=== PATIENT | female | born 1985 | race African-American/Black ===

== ENCOUNTER 2016-10-20 12:20 | Emergency (ER) | payer OTHER, MEDICAID ==
[~2016-10-20] VITALS: Ht 91.4 cm; Wt 28.6 kg
[2016-10-20 12:49] VITALS: BP 118/85
== END 2016-10-20 13:12 | disposition home or self-care (01) ==
LOC: ER 12:20
DX: J06.9 Acute upper respiratory infection, unspecified (principal)
CPT/HCPCS: A4606; Z7610

== ENCOUNTER 2019-06-28 22:19 | Emergency (ER) | payer MEDICAID, MEDICARE ==
[~2019-06-28] VITALS: Ht 91.4 cm; Wt 31.8 kg
[2019-06-28 22:25] VITALS: BP 164/115
== END 2019-06-28 23:03 | disposition home or self-care (01) ==
LOC: ER 22:24
DX: J06.9 Acute upper respiratory infection, unspecified (principal); E78.5 Hyperlipidemia, unspecified; Z60.2 Problems related to living alone

== ENCOUNTER 2019-12-21 10:56 | Emergency (ER) | payer BC, MEDICARE ==
[~2019-12-21] VITALS: Ht 94 cm; Wt 34.0 kg
--- NOTE | 2019-12-21 12:50 | NUR ---
patient came in to the er c/o R arm pain since yesterday, denies any injury. On room air, breathing evenly and unlabored. connected to the monitor and pulse ox. kept comfortable, will continue to monitor accordingly.
--- NOTE | 2019-12-21 12:51 | NUR ---
Patient discharged to home in stable condition. Written and verbal after care instructions given. Patient verbalizes understanding of instruction.
[2019-12-21 12:52] VITALS: BP 135/81
== END 2019-12-21 12:54 | disposition home or self-care (01) ==
LOC: ER 11:06
DX: S42.491A Other displaced fracture of lower end of right humerus, initial encounter for closed fracture (principal); E78.5 Hyperlipidemia, unspecified; Z60.2 Problems related to living alone; X58.XXXA Exposure to other specified factors, initial encounter; Y93.89 Activity, other specified; Y92.89 Other specified places as the place of occurrence of the external cause; Y99.8 Other external cause status
CPT/HCPCS: 73060-TC

== ENCOUNTER 2019-12-26 17:00 | Emergency (ER) | payer BC ==
[~2019-12-26] VITALS: Ht 91.4 cm; Wt 31.8 kg
[2019-12-26 17:13] VITALS: BP 155/115
== END 2019-12-26 17:55 | disposition home or self-care (01) ==
LOC: ER 17:06
DX: R03.0 Elevated blood-pressure reading, without diagnosis of hypertension (principal); Q78.0 Osteogenesis imperfecta; M79.601 Pain in right arm; E78.5 Hyperlipidemia, unspecified; Z60.2 Problems related to living alone